=== PATIENT | male | born 1970 | race African-American/Black ===

== ENCOUNTER 2017-12-14 18:12 | Emergency (ER) | payer MEDICARE, OTHER ==
[2017-12-14] MEDS: SOD CHLORIDE 0.9% 1,000 ML IV (18:40)
[2017-12-14 18:41] LABS: ADD MAN DIFF? NO
[2017-12-14 18:42] LABS: BASOPHILS % 0.6 % (0.0-2.0); EOSINOPHILS # 0.2 10^3/ul (0.0-0.5); EOSINOPHILS % 2.9 % (0.0-7.0); HEMOGLOBIN 13.5 g/dl (14.0-18.0); LYMPHOCYTES # 2.3 10^3/ul (0.8-2.9); LYMPHOCYTES % 43.6 % (15.0-51.0); MEAN CORPUSCULAR HEMOGLOBIN 31.5 pg (29.0-33.0); MEAN CORPUSCULAR HGB CONC 33.8 g/dl (32.0-37.0); MEAN CORPUSCULAR VOLUME 93.5 fl (82.0-101.0); MEAN PLATELET VOLUME 8.5 fl (7.4-10.4); MONOCYTE # 0.4 10^3/ul (0.3-0.9); MONOCYTES % 8.1 % (0.0-11.0); NEUTROPHIL # 2.3 10^3/ul (1.6-7.5); NEUTROPHILS % 44.4 % (39.0-77.0); PLATELET COUNT 272 10^3/UL (140-415); RED BLOOD COUNT 4.28 10^6/ul (4.70-6.10); RED CELL DISTRIBUTION WIDTH 13.2 % (11.5-14.5)
[2017-12-14 18:42] LABS: WHITE BLOOD COUNT 5.2 10^3/ul (4.8-10.8)
[2017-12-14 18:56] LABS: INR 1.06; PROTIME 13.9 Sec (11.9-14.9); PT RATIO 1.1
[2017-12-14 19:01] LABS: ANION GAP 16 (8-16); BLOOD UREA NITROGEN 13 mg/dl (7-20); CALCIUM 8.7 mg/dl (8.4-10.2); CARBON DIOXIDE 24 mmol/L (21-31); CHLORIDE 110 mmol/L (97-110); CREATININE 1.34 mg/dl (0.61-1.24); GLUCOSE 121 mg/dl (70-220); SODIUM 146 mmol/L (135-144)
[2017-12-14 19:13] LABS: B-TYPE NATRIURETIC PEPTIDE 18 PG/ML (0-125); TROPONIN-I < 0.012 ng/ml (0.000-0.120)
== END 2017-12-14 20:51 | disposition home or self-care (01) ==
LOC: E/R 18:12
DX: R55 Syncope and collapse (principal); N17.9 Acute kidney failure, unspecified; I10 Essential (primary) hypertension
CPT/HCPCS: 36415; 71045; 80048; 83880; 84484; 85025; 85610; 93005; 99285-25